=== PATIENT | female | born 1945 | race Caucasian/White ===

== ENCOUNTER → 2023-06-13 12:46 | Outpatient (CLI) | payer MEDICARE, SELFPAY ==
--- NOTE | 2023-06-13 | CA_ITS ---
APPROVED REPORT EXAM: Comprehensive 2D, Doppler, and color-flow Echocardiogram [employer] Specialist: Yasmeen Mackenzie, RT(R) Ht: 5 ft 0 in Wt: 153lbs BSA: 1.67 BP: 154/74 mmHg Indications: retinal arterial occlusion rt eye, hyperlipidemia 2D Dimensions LVOT 1.74 cm (M/F) 1.5-2.5 LVEF (Jones's) 47.80 % F: 54 - 74 LV Volume 70.30 mL F: 46 - 106 LV Volume Index 42.10 mL/m2 F: 29 - 61 LA Volume 49.90 mL LA Volume Index 29.88 mL/m2 (M/F) 16-34 M-Mode Dimensions RVDd 3.15 cm (0.9-2.6) LA Diam 3.32 cm (1.9-4.0) LVDd 4.29 cm (3.5-5.7) Ao Diam 2.02 cm (2.0-3.7) LVDs 3.57 cm (3.5-5.7) IVSd 0.91 cm (0.6-1.1) PWd 0.83 cm (0.6-1.1) EF (Teich) 35.50% FS 16.80% EDV (Teich) 82.60 mL ESV (Teich) 53.30 mL LV Diastology E Decel Time 323.00 (160-240 msec) E/A Ratio 0.77 MED E' 6.50 (< 7 cm/sec) E'/MED E' Ratio 10.82 (>14) LAT E' 7.20 (<10 cm/sec) E/LAT E' Ratio 9.76 (>14) Mitral Valve MV A Velocity 91.00 (40-130 cm/s) E/A Ratio 0.77 MV Decel. Time 323.00 (160-240 ms) Tricuspid Valve TR P. Velocity 301.00 cm/s RAP Estimate 15.00 mmHg RVSP 51.20 mmHg Left Ventricle The left ventricle is normal size. Left ventricular systolic function is low normal. There is increased LV wall thickness. There is borderline global hypokinesis present. The septum appears asynchronous. Diastolic function is indeterminate. LVEF is 50%. Right Ventricle The right ventricle is normal size. The right ventricular systolic function is normal. Atria Left atrium is mildly dilated. Right atrium is normal in size. There is no Doppler evidence of interatrial shunt. Aortic Valve The aortic valve is mildly thickened. There is no aortic valvular stenosis. Mild aortic regurgitation. Mitral Valve The mitral valve leaflets are mildly thickened. No evidence of mitral valve stenosis. Mild mitral regurgitation. Tricuspid Valve The tricuspid valve leaflets are thin and pliable. Moderate tricuspid regurgitation. RVSP is 30-35 mmHg. Pulmonic Valve The pulmonary valve is normal in structure. Mild pulmonic regurgitation. Great Vessels The aortic root is normal in size. The ascending aorta is normal in size. IVC is normal in size and collapses >50% with inspiration. Pericardium There is no pericardial effusion. Other Information Study Quality: Fair Conclusion Low normal LV systolic function (LVEF 50%). Mild left atrial enlargement. Mild AI, mild MR. Moderate TR. RVSP 30-35 mmHg. Electronically signed by : Tatiana Pantoja MD 06/15/2023 11:40:17
--- NOTE | 2023-06-13 | CA_ITS ---
FINAL REPORT TECHNIQUE: Caal scale, color and spectral doppler images of the bilateral carotid arteries were obtained. CLINICAL HISTORY: retinal arterial occlusion rt eye, hyperlipdiemia COMPARISON: None FINDINGS: Peak systolic velocity in the right internal carotid artery is 84 cm/sec. The internal carotid to common carotid artery ratio is 1.5. There is no significant carotid artery stenosis and mild plaque formation. The right vertebral artery is normal in direction. Peak systolic velocity in the left internal carotid artery is 119 cm/sec. The internal carotid to common carotid artery ratio is 1.9. There is no significant carotid artery stenosis and mild plaque formation. The left vertebral artery is normal in direction. IMPRESSION: No ultrasound evidence of hemodynamically significant carotid artery stenosis. Normal peak systolic velocities and normal internal to common carotid artery ratios bilaterally. Reviewed, Interpreted and Dictated by Gina Salinas MD Transcribed by Subha Sheth Authenticated and [facility]
--- NOTE | 2023-06-13 13:35 | ECG_ITS ---
APPROVED REPORT Exam: Resting ECG HR:56 bpm ECG Measurements Heart Rate 56 AXES NV 143 P 48 QRSd 129 QRS -35 QT 443 T 134 QTc 435 Conclusion SINUS BRADYCARDIA LEFT AXIS DEVIATION [QRS AXIS < -30] LEFT BUNDLE BRANCH BLOCK [120+ ms QRS DURATION, 80+ ms Q/S IN V1/V2, 85+ ms R IN I/aVL/V5/V6] ABNORMAL ECG UNCONFIRMED REPORT Electronically signed by : Tigre Vasquez MD 06/13/2023 17:47:51
== END ==
PROVIDERS: PCP Family Medicine; Visit Provider Family Medicine
DX: H34.11 Central retinal artery occlusion, right eye (principal); E78.5 Hyperlipidemia, unspecified; R94.31 Abnormal electrocardiogram [ECG] [EKG]
CPT/HCPCS: 93005; 93306; 93880

== ENCOUNTER 2023-10-29 06:31 | Emergency (ER) | payer MEDICARE, SELFPAY ==
[2023-10-29 06:32] VITALS: BP 158/90; PULSE 60; RESP 18; TEMP 36.5; O2SAT 99; BMI 28.3
[2023-10-29 06:36] VITALS: BMI 30.2
[2023-10-29] MEDS: OXYMETAZOLINE NASAL SPRAY 0.05% 15ML NS (06:38)
--- NOTE | 2023-10-29 06:38 | PC.NURSE ---
Provider at bedside, asked patient to blow nose, moderate clot removed. Provider sprayed afrin into both nostrils and applied nasal clamp.
--- NOTE | 2023-10-29 06:43 | HMH.EDGENADL ---
Discharge Plan Disposition Patient Disposition: Home, Self-Care Prescriptions Prescriptions: No Action loratadine [Allergy Relief (loratadine)] 10 mg tablet 10 mg PO ONCE Qty: 30 0RF olopatadine 0.2 % drops 1 drp OPHTHALMIC Q24H Qty: 2.5 0RF simvastatin 20 mg tablet 20 mg PO DAILY 90 Days Qty: 90 Patient Comments: levothyroxine 75 mcg tablet 75 mcg PO DAILY donepezil 10 mg tablet 10 mg PO DAILY cholecalciferol (vitamin D3) 1,250 mcg (50,000 unit) capsule 1,250 mcg PO WEEKLY Patient Comments: TAKE 1 CAPSULE BY MOUTH ONCE A WEEK Referrals Follow up/Referrals: Nik Pritchard MD [Primary Care Provider] - See instructions Activity Restrictions/Add. Instructions Additional Instructions/Restrictions: Today had an acute anterior epistaxis that was relieved with Afrin and compression. If you rebleed at home please readminister Afrin and apply direct compression for 30 minutes. If that does not alleviate bleeding return to the emergency department. Humidifier will help as discussed. Labs are unremarkable. Clinical Impressions Clinical Impression: Acute anterior epistaxis Instructions Patient Instructions: DI for Nosebleed Discharge ED Provider: Haylee Giordano General Adult HPI <Haylee Giordano MD - Last Filed: 10/29/23 06:56> General Chief complaint: Epistaxis Stated complaint: severe nose bleed Time Seen by Provider: 10/29/23 06:32 History of Present Illness HPI narrative: 77-year-old female presents to the ER with concerns of nosebleed. She states she woke up with a nosebleed which she has never had before. She states she let it go on for about 10 minutes before deciding to come to the ER. She does not take any blood thinners. No history of hypertension. Patient states it seems to mostly be coming from the left side. She denies any trauma, she does not report picking her nose. Patient denies any other positive review of systems. She is tasting blood down the back of her throat. Related Data Home Medications Medication Instructions Recorded Confirmed cholecalciferol (vitamin D3) 1,250 1,250 mcg PO WEEKLY 05/16/23 08/10/23 mcg (50,000 unit) capsule donepezil 10 mg tablet 10 mg PO DAILY 05/16/23 08/10/23 levothyroxine 75 mcg tablet 75 mcg PO DAILY 05/16/23 08/10/23 simvastatin 20 mg tablet 20 mg PO DAILY 90 days #90 tabs 05/16/23 08/10/23 Previous Rx's Medication Instructions Recorded loratadine 10 mg tablet (Allergy 10 mg PO ONCE #30 tabs 10/07/17 Relief (loratadine)) olopatadine 0.2 % eye drops 1 drp ophthalmic (eye) Q24H #2.5 mL 10/07/17 Allergies Allergy/AdvReac Type Severity Reaction Status Date / Time Penicillins Allergy Verified 08/10/23 13:49 PFS <Haylee Giordano MD - Last Filed: 10/29/23 06:56> PFS Disclaimer: The information contained in this section may have been updated after the patient was seen, as this information can be updated by other users. Medical History High cholesterol Hypothyroid Uterovaginal prolapse, complete Surgical History History of cataract surgery Family History Sister Cancer twin sister-breast cancer Social History Smoking Status: Never smoker alcohol intake: never current occupational status: retired Travel in the last 8 weeks: None <Haylee Giordano MD - Last Filed: 10/29/23 06:56> ROS Obtained: Yes All systems reviewed & no additional complaints except as documented Constitutional Constitutional: Denies chills, Denies fever(s), Denies headache(s) and Denies weakness Eyes Eyes: Denies change in vision ENT Ears, Nose, Mouth, and Throat: Denies dizziness, Reports epistaxis, Denies headache(s), Denies nasal congestion and Denies sore throat Cardiovascular Cardiovascular: Denies chest pain, Denies dyspnea and Denies leg edema Respiratory Respiratory: Denies cough and Denies dyspnea Gastrointestinal Gastrointestingal: Denies constipation, diarrhea, nausea or vomiting Genitourinary Female Genitourinary: Denies dysuria Musculoskeletal Musculoskeletal: Denies arthralgias, Denies myalgias, Denies numbness and Denies tingling Integumentary/Breasts Skin/Breast: Denies change in pigmentation Neurologic Neurologic: Denies dizziness, Denies headache(s), Denies numbness, Denies tingling and Denies weakness Physical Exam <Haylee Giordano MD - Last Filed: 10/29/23 06:56> General General appearance: alert and in no apparent distress Head Head exam: atraumatic and normocephalic Eye Eye exam: Present PERRL and EOMI ENT ENT exam: Present mucous membranes moist and other (Epistaxis from the left nare) Neck Neck exam: Present normal inspection and full ROM Chest Chest inspection: Present symmetric chest wall rise Respiratory Respiratory exam: Present normal lung sounds bilaterally; Absent respiratory distress, wheezes or stridor Cardiovascular Cardiovascular exam: Present regular rate and normal rhythm Extremities Exam Extremities exam: Present full ROM Neurological Exam Neurological exam: Present alert and oriented X3; Absent motor sensory deficit Psychiatric Psychiatric exam: Present normal affect and normal mood Skin Skin exam: Present warm and dry Medical Decision Making <Haylee Giordano MD - Last Filed: 10/29/23 06:56> [place] Inquiry Pt receiving controlled substance: No Vital Signs: 10/29/23 06:32 10/29/23 07:01 Temperature 97.7 F Temperature Source Oral Pulse Rate 69 Pulse Rate [Left Radial] 60 Respiratory Rate 18 Blood Pressure 155/74 H Blood Pressure [Right Arm] 158/90 H Blood Pressure Mean [Right Arm] 112 Blood Pressure Source [Right Arm] Automatic Cuff Blood Pressure Position [Right Arm] Left Lateral 02 Sat by Pulse Oximetry 99 95 Oxygen Delivery Method Room Air Room Air Lab Data Lab Results 10/29/23 06:54: WBC 8.7, RBC 4.22, Hgb 13.6, Hct 43.5, MCV 103.1 H, MCH 32.3 H, MCHC 31.3 L, RDW 13.0, Plt Count 245, MPV 9.1, Neut % (Auto) 51.2, Lymph % (Auto) 41.8, [place] % (Auto) 3.8, Eos % (Auto) 1.9, Baso % (Auto) 1.3, Neut # (Auto) 4.5, Lymph # (Auto) 3.7, [place] # (Auto) 0.3, Eos # (Auto) 0.2, Baso # (Auto) 0.1, PT 10.3, INR 0.95, APTT 25.9, Sodium 140, Potassium 3.6, Chloride 107, Carbon Dioxide 27, Anion Gap 9.6, BUN 16, Creatinine 1.10 H, Estimated Creat Clear 49, Estimated GFR 48 L, Est GFR ( Amer) 58 L, Glucose 111 H, Calcium 9.6, Total Bilirubin 1.0, AST 49 H, ALT 39, Alkaline Phosphatase 195 H, Total Protein 7.2, Albumin 4.2, Globulin 3.0, Albumin/Globulin Ratio 1.4 10/29/23 06:54 10/29/23 06:54 Orders (Tests/Meds): ED MEDICATIONS Discontinued Medications Generic Name Dose Route Start Last Admin Trade Name Freq PRN Reason Stop Dose Admin Ondansetron HCl 4 mg 10/29/23 06:43 10/29/23 06:56 Ondansetron 4mg/2ml Vial IV 10/29/23 06:44 4 mg ONCE ONE Administration Oxymetazoline HCl 1 ml 10/29/23 06:37 10/29/23 06:38 Oxymetazoline Nasal [place] 0.05% 15ml NS 10/29/23 06:38 1 ml ONCE ONE Administration ORDERS Category Date Time Status Type and Screen Stat BBK 10/29/23 06:47 Received CBC w/Auto Diff [Complete Blood Count Auto Diff] Stat Lab 10/29/23 06:54 Completed CMP [Comprehensive Metabolic Panel] Stat Lab 10/29/23 06:54 Completed PT INR [Prothrombin Time INR] Stat Lab 10/29/23 06:54 Completed PTT [Activated Partial Thrombo Time] Stat Lab 10/29/23 06:54 Completed Medical Decision Narrative: In summary, this 77year old female presents to the emergency department today with epistaxis. On initial evaluation patient is hemodynamically stable, afebrile, bleeding present from the left nare, blood is also running down the posterior oropharynx. Differential diagnosis includes but is not limited to anterior nosebleed, posterior nosebleed, coagulopathy, anemia. Based on these concerns, I ordered basic labs, type and screen, coag studies. Patient blew her nose to dislodge any old clot, I then administered Afrin spray and placed a nasal clamp. Applied at 0640. Will leave this in place for 30 minutes and reassess unless patient becomes hemodynamically unstable. On reassessment after 10 minutes, patient has less blood running down posterior oropharynx and no additional blood leaking around the clamp like when it was initially placed. Will continue to leave clamp in place. Patient handed off to Dr. Garcia for further management and disposition pending labs. <Sundeep Garcia MD - Last Filed: 10/29/23 07:44> Vital Signs: 10/29/23 06:32 10/29/23 07:01 Temperature 97.7 F Temperature Source Oral Pulse Rate 69 Pulse Rate [Left Radial] 60 Respiratory Rate 18 Blood Pressure 155/74 H Blood Pressure [Right Arm] 158/90 H Blood Pressure Mean [Right Arm] 112 Blood Pressure Source [Right Arm] Automatic Cuff Blood Pressure Position [Right Arm] Left Lateral 02 Sat by Pulse Oximetry 99 95 Oxygen Delivery Method Room Air Room Air Lab Data Lab results reviewed: Yes I reviewed the patient's lab results. Lab Results 10/29/23 06:54: WBC 8.7, RBC 4.22, Hgb 13.6, Hct 43.5, MCV 103.1 H, MCH 32.3 H, MCHC 31.3 L, RDW 13.0, Plt Count 245, MPV 9.1, Neut % (Auto) 51.2, Lymph % (Auto) 41.8, [place] % (Auto) 3.8, Eos % (Auto) 1.9, Baso % (Auto) 1.3, Neut # (Auto) 4.5, Lymph # (Auto) 3.7, [place] # (Auto) 0.3, Eos # (Auto) 0.2, Baso # (Auto) 0.1, PT 10.3, INR 0.95, APTT 25.9, Sodium 140, Potassium 3.6, Chloride 107, Carbon Dioxide 27, Anion Gap 9.6, BUN 16, Creatinine 1.10 H, Estimated Creat Clear 49, Estimated GFR 48 L, Est GFR ( Amer) 58 L, Glucose 111 H, Calcium 9.6, Total Bilirubin 1.0, AST 49 H, ALT 39, Alkaline Phosphatase 195 H, Total Protein 7.2, Albumin 4.2, Globulin 3.0, Albumin/Globulin Ratio 1.4 Orders (Tests/Meds): ED MEDICATIONS Discontinued Medications Generic Name Dose Route Start Last Admin Trade Name Freq PRN Reason Stop Dose Admin Ondansetron HCl 4 mg 10/29/23 06:43 10/29/23 06:56 Ondansetron 4mg/2ml Vial IV 10/29/23 06:44 4 mg ONCE ONE Administration Oxymetazoline HCl 1 ml 10/29/23 06:37 10/29/23 06:38 Oxymetazoline Nasal [place] 0.05% 15ml NS 10/29/23 06:38 1 ml ONCE ONE Administration ORDERS Category Date Time Status Type and Screen Stat BBK 10/29/23 06:47 Received CBC w/Auto Diff [Complete Blood Count Auto Diff] Stat Lab 10/29/23 06:54 Completed CMP [Comprehensive Metabolic Panel] Stat Lab 10/29/23 06:54 Completed PT INR [Prothrombin Time INR] Stat Lab 10/29/23 06:54 Completed PTT [Activated Partial Thrombo Time] Stat Lab 10/29/23 06:54 Completed Medical Decision Narrative: In summary, this 77year old female presents to the emergency department today with epistaxis. On initial evaluation patient is hemodynamically stable, afebrile, bleeding present from the left nare, blood is also running down the posterior oropharynx. Differential diagnosis includes but is not limited to anterior nosebleed, posterior nosebleed, coagulopathy, anemia. Based on these concerns, I ordered basic labs, type and screen, coag studies. Patient blew her nose to dislodge any old clot, I then administered Afrin spray and placed a nasal clamp. Applied at 0640. Will leave this in place for 30 minutes and reassess unless patient becomes hemodynamically unstable. On reassessment after 10 minutes, patient has less blood running down posterior oropharynx and no additional blood leaking around the clamp like when it was initially placed. Will continue to leave clamp in place. Patient handed off to Dr. Garcia for further management and disposition pending labs. Reassessment this is Dr. Garcia at 7:44 AM. Epistaxis completely resolved no ongoing anterior posterior bleeding. She has been given her nasal compression device and oxymetazoline and advised to readminister this if she rebleeds or to return the emergency part with any worsening symptoms. Labs unremarkable she was discharged in a stable condition. Critical Care <Haylee Giordano MD - Last Filed: 10/29/23 06:56> Critical Care Time Critical Care Time: No
[2023-10-29] MEDS: ONDANSETRON 4MG/2ML VIAL 4 MG IV (06:56)
[2023-10-29 07:01] VITALS: BP 155/74; PULSE 69; O2SAT 95
[2023-10-29 07:17] LABS: Basophils # 0.1 K/mm3 (0-0.2); Basophils % 1.3 % (0.1-2.0); Eosinophils # 0.2 K/mm3 (0.0-0.4); Eosinophils % 1.9 % (0.1-12.0); Hematocrit 43.5 % (37.0-47.0); Hemoglobin 13.6 g/dL (12.2-16.2); Lymphocytes # 3.7 K/mm3 (0.7-4.5); Lymphocytes % 41.8 % (10-50); Mean Corpuscular HGB Conc 31.3 g/dL (31.8-35.4); Mean Corpuscular Hemoglobin 32.3 pg (27.0-31.2); Mean Corpuscular Volume 103.1 fl (81-99); Mean Platelet Volume 9.1 fl (7.4-10.4); Monocytes # 0.3 K/mm3 (0.1-1.0); Monocytes % 3.8 % (1.7-9.3); Neutrophils # 4.5 K/mm3 (1.8-7.8); Neutrophils % 51.2 % (37.0-80.0); Platelet Count 245 K/mm3 (142-424); Red Blood Count 4.22 M/mm3 (4.20-5.40); White Blood Count 8.7 K/mm3 (4.8-10.8)
[2023-10-29 07:21] LABS: Alanine Aminotransferase 39 U/L (12-78); Albumin Level 4.2 g/dl (3.5-5.0); Albumin/Globulin Ratio 1.4 (1.1-1.8); Alkaline Phosphatase 195 U/L (38-126); Anion Gap 9.6 mEq/L (5-15); Aspartate Amino Transferase 49 U/L (14-36); Blood Urea Nitrogen 16 mg/dl (7-17); Calcium 9.6 mg/dl (8.4-10.2); Carbon Dioxide 27 mmol/L (22.0-30.0); Chloride 107 mmol/L (98-107); Creatinine Clearance Estimated 49 mL/min (50-200); Estimated Glomerular Filt Rate 48 ml/min (>60); GFR (African American) 58 ML/MIN (>60); Glucose 111 mg/dl (74-100); Potassium 3.6 mmoL/L (3.5-5.1); Sodium 140 mmol/L (136-145); Total Protein,Serum 7.2 g/dl (6.3-8.2)
[2023-10-29 07:23] LABS: Activated Partial Thrombo Time 25.9 seconds (22.8-30.6); INR 0.95 (0.9-1.1); Prothrombin Time 10.3 seconds (10.1-12.5)
[2023-10-29 07:42] VITALS: BP 106/64; PULSE 75; RESP 17; TEMP 36.6; O2SAT 98
== END 2023-10-29 07:49 | disposition home or self-care (01) ==
PROVIDERS: Emergency Provider Emergency Medicine; PCP Family Medicine
DX: R04.0 Epistaxis (principal); E03.9 Hypothyroidism, unspecified
CPT/HCPCS: 80053; 85025; 85610; 85730; 86850; 96374; 99284; J2405

== ENCOUNTER 2025-05-01 08:52 | Outpatient (CLI) | payer MEDICARE, SELFPAY ==
--- OUTSIDE RECORDS SUMMARY | 2024-04-06 06:00 | XMS_ITS ---
Author Organization [facility] Address [address] [place] [id number] Care Team Providers Care Rubber Off Name Role Phone Nik Pritchard Primary Care Provider Allergies Allergen (clinical drug ingredient) Drug/Non Drug Allergy documented on EMR Reaction Allergy Type Onset Date Status Penicillin rash Drug Allergy Active Results Component Value Reference Range Notes CBC Venipuncture (in house) Reviewed date:04/11/2024 09:58:02 AM Interpretation: Performing Lab: Notes/Report: wbc 7.8 3.5 - 10 lymph 19.1% 15 - 50 mid 5.3% 2 - 15 gran 75.6% 35 - 80 rbc 4.08 3.5 - 5.5 hgb 12.7 11.5 - 16.5 hct 38.6 35 - 55 mcv 94.5 75 - 100 mch 31.1 25 - 35 mchc 32.9 31 - 38 platlet 224 100 - 400 P-Comprehensive Metabolic Pa iesha (CMP) Reviewed date:04/11/2024 09:58:01 AM Interpretation:K+ 5.6, creat 1.15, gfr 48, alk phos 205, ast 41 Performing Lab: Notes/Report: Test performed by [facility] [address] [place] [address] , [address], [place] [address] William Sanchez MD, City Driver CLIA: [id number] Sodium 141 135-145 mmol/L Potassium 5.6 3.5-5.3 mmol/L Chloride 106 97-108 mmol/L CO2 27 22-32 mmol/L Glucose 84 65-99 mg/dL BUN 15 8-23 mg/dL Creatinine 1.15 0.50-1.00 mg/dL Calcium 10.0 8.6-10.4 mg/dL eGFR by Creatinine 48 >59 mL/min/1.73m2 Protein 6.7 6.0-8.3 g/dL Albumin 4.1 3.5-5.3 g/dL Alkaline Phosphatase 205 35-121 IU/L ALT (SGPT) 31 <5-47 IU/L AST (SGOT) 41 <5-40 IU/L Bilirubin, Total 0.6 <0.2-1.2 mg/dL A/G Ratio 1.6 1.1-2.5 P-T4 Free (thyroxine) Reviewed date:04/11/2024 09:58:01 AM Interpretation:Normal Performing Lab: Notes/Report: Test performed by [facility] [address] [place] [address] [address], [place] [address] William Sanchez MD, City Driver CLIA: [id number] Thyroxine Free (free T4) 1.34 0.86-1.76 ng/dL P-Lipid Panel Reviewed date:04/11/2024 09:58:01 AM Interpretation:chol 206 Performing Lab: Notes/Report: Test performed by [facility] [address] [place] [address] [place] [address] William Sanchez MD, City Driver CLIA: [id number] Cholesterol 206 <200 mg/dL Triglycerides 86 <150 mg/dL HDL Cholesterol 83 >39 mg/dL Cholesterol / HDL Ratio 2.48 0.00-4.44 Ratio Non-HDL Cholesterol 123 <130 mg/dL LDL Cholesterol (Calculation) 106 <130 mg/dL LDL Cholesterol Levels* Less than 100 mg/dL Optimal 100 to 129 mg/dL Near Optimal/ Above Optimal 130 to 159 mg/dL Borderline High 160 to 189 mg/dL High 190 mg/dL and above Very High * Categories as recommended by the 2004 ATPIII guidelines LDL/HDL Ratio 1.3 <3.3 Ratio LDL Cholesterol Patient History Test Date: 04/06/2024 LDL Results: 106 Units: mg/dL % Change: - P-Phosphorus Reviewed date:04/11/2024 09:58:01 AM Interpretation:Normal Performing Lab: Notes/Report: Test performed by [facility] , [facility], [place] [address] William Sanchez MD, City Driver CLIA: [id number] Phosphorus 3.7 2.5-4.5 mg/dL P-TSH Reviewed date:04/11/2024 09:58:02 AM Interpretation:Normal Performing Lab: Notes/Report: Test performed by [facility] , [place] [address] iWlliam Sanchez MD, City Driver CLIA: [id number] TSH 2.04 0.43-5.25 mU/L P-Microalbumin/Creatinine, R andom Urine Sample Reviewed date:04/11/2024 09:58:02 AM Interpretation:Normal Performing Lab: Notes/Report: Test performed by [facility] [address] [facility], [place] [address] William Sanchez MD, City Driver CLIA: [id number] Albumin/Creatinine Ratio, Urine 11 0-30 ug/m g Microalbumin, Urine, Random 0.8 Creatinine, Urine 74.0 P-Vitamin D 25-Hydroxy Reviewed date:04/11/2024 09:58:02 AM Interpretation:Normal Performing Lab: Notes/Report: Test performed by [facility] , [address], [place] [address] William Sanchez MD, City Driver CLIA: [id number] Vitamin D 25-Hydroxy 100.0 30.0-100.0 ng/mL Interpretation of Vitamin D 25 OH: < 20 ng/mL - Deficiency 20 - 29 ng/mL - Insufficiency 30 - 100 ng/mL - Sufficiency > 100 ng/mL - Super-therapeutic- toxicity may occur above this level. Clinical correlation required. REASON FOR VISIT REFILLS Medications Medication SIG (Take, Route, Frequency, Duration) Notes Start Date End Date Status Aspirin 81 MG 1 tablet Orally Once a day; Duration: 30 day(s) Active Donepezil HCl 10 MG TAKE 1 TABLET BY ONCE DAILY IN THE MORNING; Duration: 90 days Active Simvastatin 20 MG 1 tab(s) orally once a day (at bedtime); Duration: 90 days Active Losartan Potassium 25 MG 1 tablet Orally Once a day; Duration: 90 days 07/11/2023 Active Levothyroxine Sodium 75 MCG 1 tab(s) ora lly once a day; Duration: 30 days Active Vitamin D3 1.25 MG (92191 UT) 1 cap(s) orally once a week; Duration: 90 days Active Immunizations Vaccine Route Administration Date Status Comme nts Fluzone High Dose (65yr and older) IM Intramuscular 04/06/2024 Administered Vital Signs Blood pressure systolic 130 mm Hg 04/06/20 24 Blood pressure diastolic 80 mm Hg 024 Heart Rate 70 /min 04/06/2024 Height 61.25 in 04/06/2024 Weight 149.2 lbs 04/06/2024 BMI 27.96 kg/m2 04/06/2024 Encounters Encounter Location Date Provider Diagnosis [facility] [address] [place], [place] [id number] 04/06/2024 Nik [place] Pure hypercholestero lemia E78.00 ; Acquired hypothyroidism E03.9 ; Stage 3a chronic kidney disease N18.31 ; Vitamin D deficiency E55.9 and MCI (mild cognitive impairment) G31.84 Assessments Encounter Date Diagnosis (ICD Code) Assessment Notes Treatment Notes Treatment Clinical Notes Section Notes 04/06/2024 Pure hypercholesterolemia (ICD-10 - E78.00) 04/06/2024 Acquired hypothyroid ism (ICD-10 - E03.9) 04/06/2024 Stage 3a chronic kid angle disease (ICD-10 - N18.31) 04/06/2024 Vitamin D deficiency (ICD-10 - E55.9) 04/06/2024 MCI (mild cognitive impairment) (ICD-10 - G31.84) Plan Of Treatment Medication Medication Name Sig Start Date Stop Date Notes Simvastatin 20 MG 1 tab(s) orally once a day (at bedtime); Duration: 90 days Next Appt Details Follow Up: 6 Months, Reason: Provider Name:Nik Gaytan , 10/07/2025 10:00:00 AM, [address], [address], [place], [id number], Progress Notes * GOLDY MCCARTHYDOB:1945 (79 yo F)Acc No.[id number]:04/06/2024 Progress Notes Patient: Gilles ALEXIS GOLDY Provider: Travis Pritchard M.D. :1945 A ge:78 Y S ex:Female Date:04/06/2024 Address:[address] [place] [address] [id number] Subjective: * Chief Complaints: * 1 . REFILLS. * HPI: E ndocrinology: 78 year old female presents with c/o Hypothyroidism P t here to f/u, states she is doing well and does not have any concerns. C ardiology: c/o Hyperlipidemia P t is not fasting today. * ROS: D ERMATOLOGY: no R sina. n o H heath. G ASTROENTEROLOGY: no N ausea. n o V omiting. U ROLOGY: no D ifficulty urinating. n o B lood in urine. * Medical History: H yperlipidemia, Hypothyroidism, Vitamin D Deficiency, Mild Cognitive Impairment, Dx 2019, followed at , RIght Retinal artery occlusion Oct. 2022. * Surgical History: C ataract 2012, Lip Lesion Removal 2015. * Hospitalization/Major Diagno stic Procedure: D enies Past Hospitalization. * Family History: F ather: 78 yrs, diagnosed with Stroke. M other: 82 yrs. S iblings: alive, diagnosed with Cancer. Rosy leahy: alive. 1 brother(s) , 2 sister(s) - healthy. 2 daughter(s) - healthy. . Sister- breast 50 years ago. * Social History: C URRENT TOBACCO USE S moking Status: P atient does NOT smoke, F ormer Smoker:?No, S econd hand smoke exposure: Y es as a young child. * Medications: T aking Aspirin 81 MG Tablet Delayed Release 1 tablet Orally Once a day , Taking Vitamin D3 1.25 MG (53476 UT) Capsule 1 cap(s) orally once a week , Taking Donepezil HCl 10 MG Tablet TAKE 1 TABLET BY MOUTH ONCE DAILY IN THE MORNING , Taking Losartan Potassium 25 MG Tablet 1 tablet Orally Once a day , Taking Simvastatin 20 MG Tablet 1 tab(s) orally once a day (at bedtime) , Taking Levothyroxine Sodium 75 MCG Tablet 1 tab(s) orally once a day , Medication List reviewed and reconciled with the patient * Allergies: P enicillin: rash. Objective: * Vitals: W t:149.2, Temp:98.0, BP:130/80, HR:70, Nurse:juan manuel, Ht: 61.25, BMI:27.96. * Examination: E ndocrinology: General Appearance: N AD. H EENT: u nremarkable.?Thyroid exam: n o enlargement. H eart: R SR. L ungs: c lear to auscultation.?Skin: n ormal, no rash. Assessment: * Assessment: 1. P ure hypercholesterolemia - E78.00 (Primary) 2 . A cquired hypothyroidism - E03.9 3 . S tage 3a chronic kidney disease - N18.31 4 .?Vitamin D deficiency - E55.9 5 . M CI (mild cognitive impairment) - G31.84? Plan: * Treatment: Value Reference Range A /G Ratio 1.6 1.1-2.5 - * A lbumin 4.1 3.5-5.3 - g/dL * A lkaline Phosphatase 205 H 35-121 - IU/L * A LT (SGPT) 31 <5-47 - IU/L * A ST (SGOT) 41 H <5-40 - IU/L * B ilirubin, Total 0.6 <0.2-1.2 - mg/dL * B UN 15 8-23 - mg/dL * C alcium 10.0 8.6-10.4 - mg/dL * C hloride 106 97-108 - mmol/L * C O2 27 22-32 - mmol/L * C reatinine 1.15 H 0.50-1.00 - mg/dL * G lucose 84 65-99 - mg/dL * P otassium 5.6 H 3.5-5.3 - mmol/L * S odium 141 135-145 - mmol/L * P rotein 6.7 6.0-8.3 - g/dL * e GFR by Creatinine 48 L >59 - mL/min/1.73m2 * Marta Summers 04/11/2024 9:56: 52 AM >See phone encounter ?LAB: P-Lipid Panel (Collection Date & Time - 04/06/2024 09:36 AM)?chol 206 * Value Reference Range C holesterol / HDL Ratio 2.48 0.00-4.44 - Ratio * C holesterol 206 H <200 - mg/dL * H DL Cholesterol 83 >39 - mg/dL * L DL Cholesterol (Calculation) 106 <130 - mg/d L * L DL/HDL Ratio 1.3 <3.3 - Ratio * N on-HDL Cholesterol 123 <130 - mg/dL * T riglycerides 86 <150 - mg/dL * Marta Summers 04/11/2024 9:56: 52 AM >See phone encounter 2.?Acquired hypothyroidism?LAB: P-T4 Free (thyroxine) (Collection Date & Time - 04/06/2024 09:36 AM)? Normal* Value Reference Range T hyroxine Free (free T4) 1.34 0.86-1.76 - ng/d L * Marta Summers 04/11/2024 9:56: 52 AM >See phone encounter ?LAB: P-TSH (Collection Date & Time - 04/06/2024 09:36 AM)?Normal* Value Reference Range T SH 2.04 0.43-5.25 - mU/L * Marta Summers 04/11/2024 9:56: 52 AM >See phone encounter 3.?Stage 3a chronic kidney disease?LAB: P-Comprehensive Metabolic Panel (CMP) (Collection Date & Time - 04/06/2024 09:36 AM)?K+ 5.6, creat 1.15, gfr 48, alk phos 205, ast 41* Value Reference Range A /G Ratio 1.6 1.1-2.5 - * A lbumin 4.1 3.5-5.3 - g/dL * A lkaline Phosphatase 205 H 35-121 - IU/L * A LT (SGPT) 31 <5-47 - IU/L * A ST (SGOT) 41 H <5-40 - IU/L * B ilirubin, Total 0.6 <0.2-1.2 - mg/dL * B UN 15 8-23 - mg/dL * C alcium 10.0 8.6-10.4 - mg/dL * C hloride 106 97-108 - mmol/L * C O2 27 22-32 - mmol/L * C reatinine 1.15 H 0.50-1.00 - mg/dL * G lucose 84 65-99 - mg/dL * P otassium 5.6 H 3.5-5.3 - mmol/L * S odium 141 135-145 - mmol/L * P rotein 6.7 6.0-8.3 - g/dL * e GFR by Creatinine 48 L >59 - mL/min/1.73m2 * Marta Summers 04/11/2024 9:56: 52 AM >See phone encounter ?LAB: P-Phosphorus (Collection Date & Time - 04/06/2024 09:36 AM)?Normal* Value Reference Range P hosphorus 3.7 2.5-4.5 - mg/dL * Marta Summers 04/11/2024 9:56: 52 AM >See phone encounter ?LAB: P-Microalbumin/Creatinine, Random Urine Sample (Collection Date & Time - 04/06/2024 09:36 AM)?Normal* Value Reference Range A lbumin/Creatinine Ratio, Urine 11 0-30 - ug /mg * C reatinine, Urine 74.0 - mg/dL * M icroalbumin, Urine, Random 0.8 - mg/dL * Marta Summers 04/11/2024 9:56: 52 AM >See phone encounter ?LAB: CBC Venipuncture (in house) (Collection Date & Time - 04/06/2024)* Value Reference Range w bc 7.8 3.5 - 10 * l ymph 19.1% 15 - 50 * m id 5.3% 2 - 15 * g ran 75.6% 35 - 80 * r bc 4.08 3.5 - 5.5 * h gb 12.7 11.5 - 16.5 * h ct 38.6 35 - 55 * m cv 94.5 75 - 100 * m ch 31.1 25 - 35 * m chc 32.9 31 - 38 * p latlet 224 100 - 400 * Zully Del Real 04/06/2024 12:09:1 3 PM > Marta Summers 04/11/2024 9:56:52 AM >See phone encounter 4.?Vitamin D deficiency?LAB: P-Vitamin D 25-Hydroxy (Collection Date & Time - 04/06/2024 09:36 AM)? Normal* Value Reference Range V itamin D 25-Hydroxy 100.0 30.0-100.0 - ng/mL * Marta Summers 04/11/2024 9:56: 52 AM >See phone encounter * Immunizations: Fluzone High Dose (65yr and older) : 0.7 mL (Route: Intramuscular) given by Zully Del Real on Right Deltoid * Procedure Codes: G 2211 Complex [place], [address] CBC WITH AUTO DIFF * Follow Up: 6 Months * Images: Billing Information: * Visit Code: 58899 Office Visit, Est Pt., Level 4. * Procedure Codes: G2211 Complex e/[place]. [address] CBC WITH AUTO DIFF. * Electronic signature of Dariana Pritchard MD on 05/01/2025 at 09:05 AM EDT Sign off status: Pending * Provider: Travis Pritchard M.D. Date: 0 04/06/2024 Generated for Dante alba/Pascual/eTransmitting on: 0 05/01/2025 09:05 AM EDT History and Physical Notes * HPI (History of Present Illness) Category Sub-Category Detail Notes Category Not es Endocrinology Hypothyroidism Pt here to f/u, states she is doing well and does not have any concerns Cardiology Hyperlipidemia Pt is not fasting today Examination Category Sub-Category Detail Notes Category Not es Endocrinology HEENT: unremarkable Heart: RSR Lungs: clear to auscultatio n General Appearance: NAD Skin: normal, no rash Thyroid exam: no enlargement
--- OUTSIDE RECORDS SUMMARY | 2024-04-19 04:45 | XMS_ITS ---
Author Organization [facility] Address [address] [facility] [address] [place] [id number] Care Team Providers Care Flash Welder Name Role Phone Nik Pritchard Primary Care Provider [phone] Results Component Value Reference Range Notes P-Basic Metabolic Panel (BMP ) Reviewed date:04/20/2024 03:52:54 PM Interpretation:Cr 1.22, gfr 45 Performing Lab: Notes/Report: Test performed by [facility] [address] [place] [address] , [address], [place] [address] William Sanchez MD, Clerk Of Works CLIA: [id number] Sodium 140 135-145 mmol/L Potassium 4.2 3.5-5.3 mmol/L Chloride 103 97-108 mmol/L CO2 27 22-32 mmol/L Glucose 89 65-99 mg/dL BUN 13 8-23 mg/dL Creatinine 1.22 0.50-1.00 mg/dL Calcium 9.6 8.6-10.4 mg/dL eGFR by Creatinine 45 >59 mL/min/1.73m2 REASON FOR VISIT lab draw only Medications Medication SIG (Take, Route, Frequency, Duration) Notes Start Date End Date Status Simvastatin 20 MG 1 tab(s) orally once a day (at bedtime); Duration: 90 days Active Levothyroxine Sodium 75 MCG 1 tab(s) ora lly once a day; Duration: 30 days Active Vitamin D3 1.25 MG (33141 UT) 1 cap(s) orally once a week; Duration: 90 days Active Losartan Potassium 25 MG 1 tablet Orally Once a day; Duration: 90 days 07/11/2023 Active Donepezil HCl 10 MG TAKE 1 TABLET BY VELIA ONCE DAILY IN THE MORNING; Duration: 90 days Active Aspirin 81 MG 1 tablet Orally Once a day; Duration: 30 day(s) Active Encounters Encounter Location Date Provider Diagnosis [facility] [address] [facility] [address] [facility] [address] [place] [id number] 04/19/2024 Nik Pritchard Hyperkalemia E87.5 Assessments Encounter Date Diagnosis (ICD Code) Assessment Notes Treatment Notes Treatment Clinical Notes Section Notes 04/19/2024 Hyperkalemia (ICD-10 - E87.5) Plan Of Treatment Next Appt Details Provider Name:Nik Gaytan ry, 10/07/2025 10:00:00 AM, [address] [facility] [address] [facility], [address], [place], [id number], Progress Notes * GOLDY MCCARTHYDOB:1945 (79 yo F)Acc No.[id number]:04/19/2024 Patient: Gilles GOLDY ALEXIS Provider: Travis Pritchard M.D. :1945 A ge:78 Y S ex:Female Date:04/19/2024 Address:[address] [place] [address] [id number] Subjective: * Chief Complaints: * 1 . Lab draw only. * Medical History: * Medications: T aking Aspirin 81 MG Tablet Delayed Release 1 tablet Orally Once a day , Taking Vitamin D3 1.25 MG (64104 UT) Capsule 1 cap(s) orally once a week , Taking Donepezil HCl 10 MG Tablet TAKE 1 TABLET BY MOUTH ONCE DAILY IN THE MORNING , Taking Losartan Potassium 25 MG Tablet 1 tablet Orally Once a day , Taking Levothyroxine Sodium 75 MCG Tablet 1 tab(s) orally once a day , Taking Simvastatin 20 MG Tablet 1 tab(s) orally once a day (at bedtime) , Medication List reviewed and reconciled with the patient Objective: * Vitals: Assessment: * Assessment: 1. H yperkalemia - E87.5 Plan: * Treatment: Value Reference Range B UN 13 8-23 - mg/dL * C alcium 9.6 8.6-10.4 - mg/dL * C hloride 103 97-108 - mmol/L * C O2 27 22-32 - mmol/L * C reatinine 1.22 H 0.50-1.00 - mg/dL * G lucose 89 65-99 - mg/dL * P otassium 4.2 3.5-5.3 - mmol/L * S odium 140 135-145 - mmol/L * e GFR by Creatinine 45 L >59 - mL/min/1.73m2 * Rachael Cortés 04/20/2024 3:52: 46 PM >See phone encounter * Images: Billing Information: * Visit Code: * Procedure Codes: * Electronic signature of Dariana Pritchard MD on 05/01/2025 at 09:04 AM EDT Sign off status: Pending * Provider: Travis Pritchard M.D. Date: 0 04/19/2024 Generated for Dante alba/Pascual/eTransmitting on: 0 05/01/2025 09:04 AM EDT
--- OUTSIDE RECORDS SUMMARY | 2024-10-05 05:30 | XMS_ITS ---
Author Organization [facility] Address [address] [place] [id number] Care Team Providers Care Enamel Drier Name Role Phone Nik Pritchard Primary Care Provider [phone] Allergies Allergen (clinical drug ingredient) Drug/Non Drug Allergy documented on EMR Reaction Allergy Type Onset Date Status Penicillin rash Drug Allergy Active Results Component Value Reference Range Notes P-Comprehensive Metabolic Pa iesha (CMP) Reviewed date:10/08/2024 11:41:29 AM Interpretation:Cr 1.18, gfr 46, alk phos 212 Performing Lab: Notes/Report: Test performed by [facility] [address] [place] [address] , [address], [place] [address] William Sanchez MD, Viscosity Tester CLIA: [id number] Sodium 142 135-145 mmol/L Potassium 4.6 3.5-5.3 mmol/L Chloride 105 97-108 mmol/L CO2 26 22-32 mmol/L Glucose 81 65-99 mg/dL BUN 16 8-23 mg/dL Creatinine 1.18 0.50-1.00 mg/dL Calcium 9.9 8.6-10.4 mg/dL eGFR by Creatinine 46 >59 mL/min/1.73m2 Protein 6.7 6.0-8.3 g/dL Albumin 4.3 3.5-5.3 g/dL Alkaline Phosphatase 212 35-121 IU/L ALT (SGPT) 30 <5-47 IU/L AST (SGOT) 32 <5-40 IU/L Bilirubin, Total 0.6 <0.2-1.2 mg/dL A/G Ratio 1.8 1.1-2.5 P-Lipid Panel Reviewed date:10/08/2024 11:41:29 AM Interpretation: Normal Performing Lab: Notes/Report: Test performed by [facility] [address] , [address], [place] [address] William Sanchez MD, Viscosity Tester CLIA: [id number] Cholesterol 192 <200 mg/dL Triglycerides 96 <150 mg/dL HDL Cholesterol 86 >39 mg/dL Cholesterol / HDL Ratio 2.23 0.00-4.44 Ratio Non-HDL Cholesterol 106 <130 mg/dL LDL Cholesterol (Calculation) 87 <130 mg/dL LDL Cholesterol Levels* Less than 100 mg/dL Optimal 100 to 129 mg/dL Near Optimal/ Above Optimal 130 to 159 mg/dL Borderline High 160 to 189 mg/dL High 190 mg/dL and above Very High * Categories as recommended by the 2004 ATPIII guidelines LDL/HDL Ratio 1.0 <3.3 Ratio LDL Cholesterol Patient History Test Date: 04/06/2024 LDL Results: 106 Units: mg/dL % Change: - Test Date: 10/05/2024 LDL Results: 87 Units: mg/dL % Change: -17% P-Phosphorus Reviewed date:10/08/2024 11:41:29 AM Interpretation: Normal Performing Lab: Notes/Report: Test performed by [facility] [address] [place] [address] , [address], [place] [address] William Sanchez MD, Viscosity Tester CLIA: [id number] Phosphorus 3.4 2.5-4.5 mg/dL REASON FOR VISIT 6 months Medications Medication SIG (Take, Route, Frequency, Duration) Notes Start Date End Date Status Aspirin 81 MG 1 tablet Orally Once a day; Duration: 30 day(s) Active Simvastatin 20 MG 1 tab(s) orally once a day (at bedtime); Duration: 90 days Active Levothyroxine Sodium 75 MCG 1 tab(s) ora lly once a day; Duration: 90 days Active Donepezil HCl 10 MG TAKE 1 TABLET BY VELIA ONCE DAILY IN THE MORNING; Duration: 90 days Active Losartan Potassium 25 MG 1 tablet Orally Once a day; Duration: 90 days 07/11/2023 Active Farxiga 10 MG 1 tablet Orally Once a day; Duration: 90 days 10/05/2024 Active Vitamin D3 1.25 MG (40627 UT) 1 cap(s) orally once a week; Duration: 90 days Active Vital Signs Blood pressure systolic 130 mm Hg 10/05/19 25 Blood pressure diastolic 74 mm Hg 025 Heart Rate 57 /min 10/05/2024 Height 61.25 in 10/05/2024 Weight 151 lbs 10/05/2024 BMI 28.30 kg/m2 10/05/2024 Encounters Encounter Location Date Provider Diagnosis [facility] [address] [place] [id number] 10/05/2024 Nik Alderson Pure hypercholestero lemia E78.00 and Stage 3a chronic kidney disease N18.31 Assessments Encounter Date Diagnosis (ICD Code) Assessment Notes Treatment Notes Treatment Clinical Notes Section Notes 10/05/2024 Pure hypercholesterolemia (ICD-10 - E78.00) 10/05/2024 Stage 3a chronic kid angle disease (ICD-10 - N18.31) Plan Of Treatment Medication Medication Name Sig Start Date Stop Date Notes Simvastatin 20 MG 1 tab(s) orally once a day (at bedtime); Duration: 90 days Farxiga 10 MG 1 tablet Orally Once a day; Duration: 90 days 10/05/2024 Next Appt Details Follow Up: 6 Months, Reason: Provider Name:Nik Gaytan ry, 10/07/2025 10:00:00 AM, [address], [address], [place], [place], [id number], Progress Notes * GOLDY MCCARTHYDOB:1945 (79 yo F)Acc No.[id number]:10/05/2024 Progress Notes Patient: GOLDY DE LA O Provider: Travis Pritchard M.D. :1945 A ge:78 Y S ex:Female Date:10/05/2024 Address:[address] [place] [address] , [place], [id number] Subjective: * Chief Complaints: * 1 . 6 months. * HPI: E ndocrinology: 78 year old female presents with c/o Hypothyroidism P t here for 6 mo f/u, pt states she is doing well and does [...] Vitamin D Deficiency, Mild Cognitive Impairment, Dx 2018, followed at , RIght Retinal artery occlusion Oct2022. * Surgical History: C ataract 2012, Lip Lesion Removal 2015. * Hospitalization/Major Diagno stic Procedure: D enies Past Hospitalization. * Family History: F ather: 78 yrs, diagnosed with Stroke. M other: 82 yrs. S iblings: alive, diagnosed with Cancer. C hildren: alive. 1 brother(s) , 2 sister(s) - [...] tab(s) orally once a day , Taking Donepezil HCl 10 MG Tablet TAKE 1 TABLET BY MOUTH ONCE DAILY IN THE MORNING , Taking Losartan Potassium 25 MG Tablet 1 tablet Orally Once a day , Taking Vitamin D3 1.25 MG (24057 UT) Capsule 1 cap(s) orally once a week , Medication List reviewed and reconciled with the patient * Allergies: P enicillin: rash. Objective: * Vitals: W t:151, Temp:98.0, BP:130/74, HR:57, Nurse:juan manuel, Ht: 61.25, BMI:28.30. * Examination: E ndocrinology: General Appearance: N AD. H EENT: u nremarkable.?Heart: R SR. L ungs: c lear to auscultation. Assessment: * Assessment: 1. P ure hypercholesterolemia - E78.00 (Primary) 2 . S tage 3a chronic kidney disease - N18.31 Plan: * Treatment: Value Reference Range A /G Ratio 1.8 1.1-2.5 - * A lbumin 4.3 3.5-5.3 - g/dL * A lkaline Phosphatase 212 H 35-121 - IU/L * A LT (SGPT) 30 <5-47 - IU/L * A ST (SGOT) 32 <5-40 - IU/L * B ilirubin, Total 0.6 <0.2-1.2 - mg/dL * B UN 16 8-23 - mg/dL * C alcium 9.9 8.6-10.4 - mg/dL * C hloride 105 97-108 - mmol/L * C O2 26 22-32 - mmol/L * C reatinine 1.18 H 0.50-1.00 - mg/dL * G lucose 81 65-99 - mg/dL * P otassium 4.6 3.5-5.3 - mmol/L * S odium 142 135-145 - mmol/L * P rotein 6.7 6.0-8.3 - g/dL * e GFR by Creatinine 46 L >59 - mL/min/1.73m2 * MooGuruRachael 10/08/2024 11:41: 24 AM >See phone encounter ?LAB: P-Lipid Panel (Collection Date & Time - 10/05/2024 08:40 AM)?Normal* Value Reference Range C holesterol / HDL Ratio 2.23 0.00-4.44 - Ratio * C holesterol 192 <200 - mg/dL * H DL Cholesterol 86 >39 - mg/dL * L DL Cholesterol (Calculation) 87 <130 - mg/d L * L DL/HDL Ratio 1.0 <3.3 - Ratio * N on-HDL Cholesterol 106 <130 - mg/dL * T riglycerides 96 <150 - mg/dL * Rachael Cortés 10/08/2024 11:41: 24 AM >See phone encounter 2.?Stage 3a chronic kidney disease? Start Farxiga Tablet, 10 MG, 1 tablet, Orally, Once a day, 90 days, 90 Tablet, Refills 1.?LAB: P-Comprehensive Metabolic Panel (CMP) (Collection Date & Time - 10/05/2024 08:40 AM)?Cr 1.18, gfr 46, alk phos 212* Value Reference Range A /G Ratio 1.8 1.1-2.5 - * A lbumin 4.3 3.5-5.3 - g/dL * A lkaline Phosphatase 212 H 35-121 - IU/L * A LT (SGPT) 30 <5-47 - IU/L * A ST (SGOT) 32 <5-40 - IU/L * B ilirubin, Total 0.6 <0.2-1.2 - mg/dL * B UN 16 8-23 - mg/dL * C alcium 9.9 8.6-10.4 - mg/dL * C hloride 105 97-108 - mmol/L * C O2 26 22-32 - mmol/L * C reatinine 1.18 H 0.50-1.00 - mg/dL * G lucose 81 65-99 - mg/dL * P otassium 4.6 3.5-5.3 - mmol/L * S odium 142 135-145 - mmol/L * P rotein 6.7 6.0-8.3 - g/dL * e GFR by Creatinine 46 L >59 - mL/min/1.73m2 * Rachael Cortés 10/08/2024 11:41: 24 AM >See phone encounter ?LAB: P-Phosphorus (Collection Date & Time - 10/05/2024 08:40 AM)?Normal* Value Reference Range P hosphorus 3.4 2.5-4.5 - mg/dL * Rachael Cortés 10/08/2024 11:41: 24 AM >See phone encounter * Procedure Codes: G 2211 Complex e/m visit add on, 3075F SYST BP GE 130 - 139MM HG, 3078F DIAST BP < 80 MM HG * Follow Up: 6 Months * Images: Billing Information: * Visit Code: 15474 Office Visit, Est Pt., Level 4. * Procedure Codes: G2211 Complex e/m visit add on. 3075F SYST BP GE 130 - 139MM HG. 3078F DIAST BP < 80 MM HG. * Electronic signature of Dariana Pritchard MD on 05/01/2025 at 09:04 AM EDT Sign off status: Pending * Provider: Travis Pritchard M.D. Date: 0 10/05/2024 Generated for Dante alba/Pascual/eTransmitting on: 0 05/01/2025 09:04 AM EDT History and Physical Notes * HPI (History of Present Illness) Category Sub-Category Detail Notes Category Not es Endocrinology Hypothyroidism Pt here for 6 mo f/u, pt states she is doing well and does not have any concerns Cardiology Hyperlipidemia Pt is not fasting today Examination Category Sub-Category Detail Notes Category Not es Endocrinology HEENT: unremarkable Heart: RSR Lungs: clear to auscultatio n General Appearance: NAD
--- OUTSIDE RECORDS SUMMARY | 2025-04-05 05:45 | XMS_ITS ---
Author Organization [facility] Address [address] [place] [id number] Care Team Providers Care Diorama Model Maker Name Role Phone Nik Pritchard Primary Care Provider Allergies Allergen (clinical drug ingredient) Drug/Non Drug Allergy documented on EMR Reaction Allergy Type Onset Date Status Penicillin rash Drug Allergy Active Results Component Value Reference Range Notes P-Comprehensive Metabolic Pa iesha (CMP) Reviewed date:04/09/2025 09:01:36 AM Interpretation:Creat 1.12, eGFR 49, Alk Phos 213 Performing Lab: Notes/Report: Test performed by [facility] [address] [place] [address] , [address], [place] [address] William Sanchez MD, Expeditionary Fighting Vehicle Crewman CLIA: [id number] Sodium 142 135-145 mmol/L Potassium 5.0 3.5-5.3 mmol/L Chloride 106 97-108 mmol/L CO2 23 20-32 mmol/L Glucose 86 65-99 mg/dL BUN 13 8-23 mg/dL Creatinine 1.13 0.50-1.00 mg/dL Calcium 10.1 8.6-10.4 mg/dL eGFR by Creatinine 49 >59 mL/min/1.73m2 Protein 6.7 6.0-8.3 g/dL Albumin 4.2 3.5-5.3 g/dL Alkaline Phosphatase 213 35-121 IU/L ALT (SGPT) 23 <5-47 IU/L AST (SGOT) 31 <5-40 IU/L Bilirubin, Total 0.6 <0.2-1.2 mg/dL A/G Ratio 1.7 1.1-2.5 P-T4 Free (thyroxine) Reviewed date:04/09/2025 09:01:36 AM Interpretation:Normal Performing Lab: Notes/Report: Test performed by [email or web address] [address] [place] [address] , [address], [place] [address] William Sanchez MD, Expeditionary Fighting Vehicle Crewman CLIA: [id number] Thyroxine Free (free T4) 1.38 0.86-1.76 ng/dL P-Lipid Panel Reviewed date:04/09/2025 09:01:36 AM Interpretation:Normal Performing Lab: Notes/Report: Test performed by [facility] [address] , [address], [place] [address] William Sanchez MD, Expeditionary Fighting Vehicle Crewman CLIA: [id number] Cholesterol 196 <200 mg/dL Triglycerides 77 <150 mg/dL HDL Cholesterol 80 >39 mg/dL Cholesterol / HDL Ratio 2.45 0.00-4.44 Ratio Non-HDL Cholesterol 116 <130 mg/dL LDL Cholesterol (Calculation) 100 <130 mg/dL LDL Cholesterol Levels* Less than [...] Results: 87 Units: mg/dL % Change: -17% Test Date: 04/05/2025 LDL Results: 100 Units: mg/dL % Change: +14% P-Phosphorus Reviewed date:04/09/2025 09:01:36 AM Interpretation:Normal Performing Lab: Notes/Report: Test performed by [facility] [address] , [place] , [place] [address] William Sanchez MD, Expeditionary Fighting Vehicle Crewman CLIA: [id number] Phosphorus 4.0 2.5-4.5 mg/dL P-TSH Reviewed date:04/09/2025 09:01:36 AM Interpretation:Normal Performing Lab: Notes/Report: Test performed by [email or web address] [address] [place] [address] [address], [place] [address] William Sanchez MD, Expeditionary Fighting Vehicle Crewman CLIA: [id number] TSH 0.59 0.43-5.25 mU/L P-Microalbumin/Creatinine, R andom Urine Sample Reviewed date:04/09/2025 09:01:36 AM Interpretation:Normal Performing Lab: Notes/Report: Test performed by [facility] [address], [place] [address] William Sanchez MD, Expeditionary Fighting Vehicle Crewman CLIA: [id number] Albumin/Creatinine Ratio, Urine 24 0-30 ug/m g Microalbumin, Urine, Random 2.6 Creatinine, Urine 107.6 P-Vitamin D 25-Hydroxy Reviewed date:04/09/2025 09:01:36 AM Interpretation:>120 Performing Lab: Notes/Report: Test performed by [email or web address] [address] [place] [address] , [address], [place] [address] William Sanchez MD, Expeditionary Fighting Vehicle Crewman CLIA: [id number] Vitamin D 25-Hydroxy >120 30.0-100.0 ng/mL Interpretation of Vitamin D 25 OH: < 20 ng/mL - Deficiency 20 - 29 ng/mL - Insufficiency 30 - 100 ng/mL - Sufficiency > 100 ng/mL - Super-therapeutic- toxicity may occur above this level. Clinical correlation required. REASON FOR VISIT 6 month f/u Medications Medication SIG (Take, Route, Frequency, Duration) Notes Start Date End Date Status Donepezil HCl 10 MG 1 tab(s) Orally Once in the morning; Duration: 90 days Active Simvastatin 20 MG 1 tab(s) orally once a day (at bedtime); Duration: 90 days Active Levothyroxine Sodium 75 MCG 1 tab(s) ora lly once a day; Duration: 90 days Active Aspirin 81 MG 1 tablet Orally Once a day; Duration: 30 day(s) Active Vitamin D3 1.25 MG (81017 UT) 1 cap(s) orally once a week; Duration: 90 days Active Losartan Potassium 25 MG 1 tablet Orally Once a day; Duration: 90 days 07/11/2023 Active Farxiga 10 MG 1 tablet Orally Once a day; Duration: 90 days 10/05/2024 Active Problems Problem Type SNOMED Code ICD Code Onset Dates Problem Status W/U Status Risk Notes Problem Dementia (89315345) Dementia without behavioral disturbance (F03.90) Active confirmed Vital Signs Blood pressure systolic 132 mm Hg 04/05/20 25 Blood pressure diastolic 74 mm Hg 025 Heart Rate 50 /min 04/05/2025 Height 61.25 in 04/05/2025 Weight 145.2 lbs 04/05/2025 BMI 27.21 kg/m2 04/05/2025 Encounters Encounter Location Date Provider Diagnosis [facility] [address] [place], [place] [id number] 04/05/2025 Nik Pritchard Acquired hypothyroid ism E03.9 ; Pure hypercholesterolemia E78.00 ; Vitamin D deficiency E55.9 ; Stage 3a chronic kidney disease N18.31 ; MCI (mild cognitive impairment) G31.84 ; Depressive disorder F32.9 and BMI 27.0-27.9,adult Z68.27 Assessments Encounter Date Diagnosis (ICD Code) Assessment Notes Treatment Notes Treatment Clinical Notes Section Notes 04/05/2025 Acquired hypothyroid ism (ICD-10 - E03.9) 04/05/2025 Pure hypercholesterolemia (ICD-10 - E78.00) 04/05/2025 Vitamin D deficiency (ICD-10 - E55.9) 04/05/2025 Stage 3a chronic kid angle disease (ICD-10 - N18.31) 04/05/2025 MCI (mild cognitive impairment) (ICD-10 - G31.84) 04/05/2025 Depressive disorder (ICD-10 - F32.9) 04/05/2025 BMI 27.0-27.9,adult (ICD-10 - Z68.27) Plan Of Treatment Next Appt Details Follow Up: 6 Months, Reason: Provider Name:Nik Gaytan , 10/07/2025 10:00:00 AM, [address] [facility], [address], [place], [id number], Progress Notes * GOLDY MCCARTHYDOB:1945 (79 yo F)Acc No.[id number]:04/05/2025 Progress Notes Patient: Gilles GOLDY ALEXIS Provider: Travis Pritchard M.D. :1945 A ge:79 Y S ex:Female Date:04/05/2025 Address:[address] [place] [address] [id number] Subjective: * Chief Complaints: * 1 . 6 month f/u. * HPI: E ndocrinology: 79 year old female presents with c/o Hypothyroidism P t is here for 6 month follow up. Pt states she is doing well and does not have any concerns. C ardiology: c/o Hyperlipidemia P t is fasting today. * ROS: D ERMATOLOGY: no R sina. n o H heath. G ASTROENTEROLOGY: no N ausea. n o V omiting. n o D iarrhea.? U ROLOGY: no D ifficulty urinating. n [...] ago. * Social History: C URRENT TOBACCO USE: No S moking Status: P atient does NOT smoke, F ormer Smoker:?No, S econd hand smoke exposure: Y es as a young child. * Medications: T aking Aspirin 81 MG Tablet Delayed Release 1 tablet Orally Once a day , Taking Vitamin D3 1.25 MG (84699 UT) Capsule 1 cap(s) orally once a week , Taking Simvastatin 20 MG Tablet 1 tab(s) orally once a day (at bedtime) , Taking Levothyroxine Sodium 75 MCG Tablet 1 tab(s) orally once a day , Taking Donepezil HCl 10 MG Tablet 1 tab(s) Orally Once in the morning , Taking Losartan Potassium 25 MG Tablet 1 tablet Orally Once a day , Taking Farxiga 10 MG Tablet 1 tablet Orally Once a day , Medication List reviewed and reconciled with the patient * Allergies: P enicillin: rash. Objective: * Vitals: W t: 145.2, Temp: 97.8, BP: 132/74, HR: 50, Nurse: REBECCA, Ht: 61.25, BMI:27.21. * Examination: E ndocrinology: General Appearance: N AD. H EENT: u nremarkable.?Heart: R SR. L ungs: c lear to auscultation. N eurologic Exam: I ntact, conversant, no focal deficits. Assessment: * Assessment: 1. A cquired hypothyroidism - E03.9 (Primary) 2 . P ure hypercholesterolemia - E78.00 3 . V itamin D deficiency - E55.9 4 . S tage 3a chronic kidney disease - N18.31 5 . M CI (mild cognitive impairment) - G31.84 6. D epressive disorder - F32.9 7 . B [place] 27.0-27.9,adult - Z68.27 Plan: * Treatment: Value Reference Range T hyroxine Free (free T4) 1.38 0.86-1.76 - ng/d L * Shelby Kirk 04/09/2025 09:0 1:31 AM EDT > See phone encounter ?LAB: P-TSH (Collection Date & Time - 04/05/2025 09:21 AM)?Normal* Value Reference Range T SH 0.59 0.43-5.25 - mU/L * Shelby Krik 04/09/2025 09:0 1:31 AM EDT > See phone encounter 2.?Pure hypercholesterolemia?LAB: P-Comprehensive Metabolic Panel (CMP) (Collection Date & Time - 04/05/2025 09:21 AM)?Creat 1.12, eGFR 49, Alk Phos 213* Value Reference Range A /G Ratio 1.7 1.1-2.5 - * A lbumin 4.2 3.5-5.3 - g/dL * A lkaline Phosphatase 213 H 35-121 - IU/L * A LT (SGPT) 23 <5-47 - IU/L * A ST (SGOT) 31 <5-40 - IU/L * B ilirubin, Total 0.6 <0.2-1.2 - mg/dL * B UN 13 8-23 - mg/dL * C alcium 10.1 8.6-10.4 - mg/dL * C hloride 106 97-108 - mmol/L * C O2 23 20-32 - mmol/L * C reatinine 1.13 H 0.50-1.00 - mg/dL * G lucose 86 65-99 - mg/dL * P otassium 5.0 3.5-5.3 - mmol/L * S odium 142 135-145 - mmol/L * P rotein 6.7 6.0-8.3 - g/dL * e GFR by Creatinine 49 L >59 - mL/min/1.73m2 * Shelby Kirk 04/09/2025 09:0 1:31 AM EDT > See phone encounter ?LAB: P-Lipid Panel (Collection Date & Time - 04/05/2025 09:21 AM)?Normal* Value Reference Range C holesterol / HDL Ratio 2.45 0.00-4.44 - Ratio * C holesterol 196 <200 - mg/dL * H DL Cholesterol 80 >39 - mg/dL * L DL Cholesterol (Calculation) 100 <130 - mg/d L * L DL/HDL Ratio 1.3 <3.3 - Ratio * N on-HDL Cholesterol 116 <130 - mg/dL * T riglycerides 77 <150 - mg/dL * Shelby Kirk 04/09/2025 09:0 1:31 AM EDT > See phone encounter 3.?Vitamin D deficiency?LAB: P-Vitamin D 25-Hydroxy (Collection Date & Time - 04/05/2025 09:21 AM)? >120* Value Reference Range V itamin D 25-Hydroxy >120 H 30.0-100.0 - ng/mL * Shelby Kirk 04/09/2025 09:0 1:31 AM EDT > See phone encounter 4.?Stage 3a chronic kidney disease?LAB: P-Comprehensive Metabolic Panel (CMP) (Collection Date & Time - 04/05/2025 09:21 AM)?Creat 1.12, eGFR 49, Alk Phos 213* Value Reference Range A /G Ratio 1.7 1.1-2.5 - * A lbumin 4.2 3.5-5.3 - g/dL * A lkaline Phosphatase 213 H 35-121 - IU/L * A LT (SGPT) 23 <5-47 - IU/L * A ST (SGOT) 31 <5-40 - IU/L * B ilirubin, Total 0.6 <0.2-1.2 - mg/dL * B UN 13 8-23 - mg/dL * C alcium 10.1 8.6-10.4 - mg/dL * C hloride 106 97-108 - mmol/L * C O2 23 20-32 - mmol/L * C reatinine 1.13 H 0.50-1.00 - mg/dL * G lucose 86 65-99 - mg/dL * P otassium 5.0 3.5-5.3 - mmol/L * S odium 142 135-145 - mmol/L * P rotein 6.7 6.0-8.3 - g/dL * e GFR by Creatinine 49 L >59 - mL/min/1.73m2 * Shelby Kirk 04/09/2025 09:0 1:31 AM EDT > See phone encounter ?LAB: P-Phosphorus (Collection Date & Time - 04/05/2025 09:21 AM)?Normal* Value Reference Range P hosphorus 4.0 2.5-4.5 - mg/dL * Shelby Kirk 04/09/2025 09:0 1:31 AM EDT > See phone encounter ?LAB: P-Microalbumin/Creatinine, Random Urine Sample (Collection Date & Time - 04/05/2025 09:21 AM)?Normal* Value Reference Range A lbumin/Creatinine Ratio, Urine 24 0-30 - ug /mg * C reatinine, Urine 107.6 - mg/dL * M icroalbumin, Urine, Random 2.6 - mg/dL * Shelby Kirk 04/09/2025 09:0 1:31 AM EDT > See phone encounter * Procedure Codes: G 2211 Complex e/m visit add on, 1036F TOBACCO NON-USER, G8420 BMI<30 AND >=22 CALC & DOCU, G8783 BP SCR PRFRM RCMDD DEFIND SCR INTVL, G8752 MOST RECENT SYSTOLIC BP < 140MM HG, G8754 MOST RECENT DIASTOLIC BP < 90MM HG * Follow Up: 6 Months * Images: Drawin04/05/25 [facility] Billing Information: * Visit Code: 96703 Office Visit, Est Pt., Level 4. * Procedure Codes: G2211 Complex e/m visit add on. 1036F TOBACCO NON-USER. G8420 BMI<30 AND >=22 CALC & DOCU. G8783 BP SCR PRFRM RCMDD DEFIND SCR INTVL. G8752 MOST RECENT SYSTOLIC BP < 140MM HG. G8754 MOST RECENT DIASTOLIC BP < 90MM HG. * Electronic signature of Dariana Pritchard MD on 05/01/2025 at 09:05 AM EDT Sign off status: Pending * Provider: Travis Pritchard M.D. Date: 0 04/05/2025 Generated for Dante alba/Pascual/Brittanysmitting on: 0 05/01/2025 09:05 AM EDT History and Physical Notes * HPI (History of Present Illness) Category Sub-Category Detail Notes Category Not es Endocrinology Hypothyroidism Pt is here for 6 month follow up. Pt states she is doing well and does not have any concerns Cardiology Hyperlipidemia Pt is fasting today Examination Category Sub-Category Detail Notes Category Not es Endocrinology HEENT: unremarkable Heart: RSR Lungs: clear to auscultatio n General Appearance: NAD Neurologic Exam: Intact, conversant, no focal deficits
--- OUTSIDE RECORDS SUMMARY | 2025-04-09 05:14 | XMS_ITS ---
Author Organization [facility] Address [facility] [address] [place] [id number] Care Team Providers Care Grain Combiner Name Role Phone Nik Pritchard Primary Care Provider REASON FOR VISIT due dexa Encounters Encounter Location Date Provider [facility] [address] [place] [id number] 04/09/2025 Nik Pritchard Encounter for screen ing for osteoporosis Z13.820 and Post-menopausal Z78.0 Assessments Encounter Date Diagnosis (ICD Code) Assessment Notes Treatment Notes Treatment Clinical Notes Section Notes 04/09/2025 Encounter for screening for osteoporosis (ICD-10 - Z13.820) 04/09/2025 Post-menopausal (ICD-10 - Z78.0) Plan Of Treatment Pending Test Test Name Order Date Bone density 04/09/2025 Next Appt Details Provider Name:Nik Gaytan ry, 10/07/2025 10:00:00 AM, [address] [facility] [address] [facility], [address], [place], [id number], Progress Notes * GOLDY MCCARTHYDOB:1945 (79 yo F)Acc No.[id number]:04/09/2025 Patient: Gilles GOLDY ALEXIS :1945 A ge:79 Y S ex:Female Address:[address] [place] [address] , [place], [id number] Subjective: * Chief Complaints: * D ue dexa * Medical History: * Surgical History: * Hospitalization/Major Diagno stic Procedure: * Medications: Objective: * Vitals: * Physical Examination: Assessment: * Assessment: 1. E ncounter for screening for osteoporosis - Z13.820 (Primary) 2 . P ost-menopausal - Z78.0 Plan: * Treatment: 2.?Post-menopausal?Imaging: Bone density* Bhakti Bates 04/10/2025 09:46 :55 AM EDT >sent to [facility] for referral to [facility] * Procedure Codes: * true * Date: Generated for Dante alba/Pascual/eTradhasmitting on: 0 05/01/2025 09:05 AM EDT
--- NOTE | 2025-05-01 08:56 | XR_ITS ---
FINAL REPORT TECHNIQUE: Bone densitometry calculations of the lumbar spine and bilateral hips were obtained. CLINICAL HISTORY: SCREENING COMPARISON: None FINDINGS: Using L1-4, the bone mineral density of the spine is 1.016 g/cm2, corresponding to T-score of -0.3 and a Z score of 2.5. This is within the range of normal. Using the left hip, the bone mineral density of the femoral neck is 0.650 g/cm2, corresponding to a T-score of -1.8 and a Z-score of 0.6. This is within the range of osteopenia. Using the right hip, the bone mineral density of the femoral neck is 0.667 g/cm?, corresponding to a T-score of -1.6 and a Z-score of 0.7. This is within the range of osteopenia. NOTE: T-score: Standard deviation compared with peak bone mass of young adult mean. *Following the recommendations of the International Society of Bone densitometry, classification of hip BMD is based on the lower of two T-scores; total hip or femoral neck. IMPRESSION: 1. Bone mineral density of the lumbar spine within the range of normal. 2. Bone mineral density of the bilateral femoral necks within the range of osteopenia. Reviewed, Interpreted and Dictated by Gina Salinas MD Transcribed by Subha Sheth Authenticated and . [facility]
--- OUTSIDE RECORDS SUMMARY | 2025-05-01 09:06 | XMS_ITS | Patient Health Record ---
Author Organization [facility] Address [address] [facility] [address] [place] [id number] Care Team Providers Care Frame Wirer Name Role Phone Nik Pritchard Primary Care Provider Allergies Allergen (clinical drug ingredient) Drug/Non Drug Allergy documented on EMR Reaction Allergy Type Onset Date Status Penicillin rash Drug Allergy Active Results Component Value Reference Range Notes P-Comprehensive Metabolic Pa iesha (CMP) Reviewed date:10/08/2024 11:41:29 AM Interpretation:Cr 1.18, gfr 46, alk phos 212 Performing Lab: Notes/Report: Test performed by [facility] [address] [place] [address] , [address], [place] [address] William Sanchez MD, Lumber Cutter CLIA: [id number] Sodium 142 135-145 mmol/L Potassium 4.6 3.5-5.3 [...] Normal Performing Lab: Notes/Report: Test performed by [facility] [address] , [place] [address] William Sanchez MD, Lumber Cutter CLIA: [id number] Cholesterol 192 <200 mg/dL Triglycerides 96 <150 [...] Normal Performing Lab: Notes/Report: Test performed by [facility] , [address], [place] [address] William Sanchez MD, Lumber Cutter CLIA: [id number] Phosphorus 3.4 2.5-4.5 mg/dL P-Vitamin D 25-Hydroxy Reviewed date:04/09/2025 09:01:36 AM Interpretation:>120 Performing Lab: Notes/Report: Test performed by [facility] [address] , [place] [address] William Sanchez MD, Lumber Cutter CLIA: [id number] Vitamin D 25-Hydroxy >120 30.0-100.0 ng/mL Interpretation of Vitamin D 25 OH: < 20 ng/mL - Deficiency 20 - 29 ng/mL - Insufficiency 30 - 100 ng/mL - Sufficiency > 100 ng/mL - Super-therapeutic- toxicity may occur above this level. Clinical correlation required. P-Microalbumin/Creatinine, R andom Urine Sample Reviewed date:04/09/2025 09:01:36 AM Interpretation:Normal Performing Lab: Notes/Report: Test performed by [facility] , [address], [place] [address] William Sanchez MD, Lumber Cutter CLIA: [id number] Albumin/Creatinine Ratio, Urine 24 0-30 ug/m g Microalbumin, Urine, Random 2.6 Creatinine, Urine 107.6 P-TSH Reviewed date:04/09/2025 09:01:36 AM Interpretation:Normal Performing Lab: Notes/Report: Test performed by [facility] [address] , [address], [place] [address] William Sanchez MD, Lumber Cutter CLIA: [id number] TSH 0.59 0.43-5.25 mU/L P-Phosphorus Reviewed date:04/09/2025 09:01:36 AM Interpretation:Normal Performing Lab: Notes/Report: Test performed by [facility] [address] [place] [address] [address], [place] [address] William Sanchez MD, Lumber Cutter CLIA: [id number] Phosphorus 4.0 2.5-4.5 mg/dL P-Lipid Panel Reviewed date:04/09/2025 09:01:36 AM Interpretation:Normal Performing Lab: Notes/Report: Test performed by [facility] [address] [place] [address] [address], [place] [address] William Sanchez MD, Lumber Cutter CLIA: [id number] Cholesterol 196 <200 mg/dL Triglycerides 77 <150 [...] Results: 100 Units: mg/dL % Change: +14% P-T4 Free (thyroxine) Reviewed date:04/09/2025 09:01:36 AM Interpretation:Normal Performing Lab: Notes/Report: Test performed by [facility] [address] [place], [place] [address] , [address], [place] [address] William Sanchez MD, Lumber Cutter CLIA: [id number] Thyroxine Free (free T4) 1.38 0.86-1.76 ng/dL P-Comprehensive Metabolic Pa iesha (CMP) Reviewed date:04/09/2025 09:01:36 AM Interpretation:Creat 1.12, eGFR 49, Alk Phos 213 Performing Lab: Notes/Report: Test performed by [facility] [address] [place], [place] [address] [address] , [address], [place] [address] William Sanchez MD, Lumber Cutter CLIA: [id number] Sodium 142 135-145 mmol/L Potassium 5.0 3.5-5.3 [...] 0.6 <0.2-1.2 mg/dL A/G Ratio 1.7 1.1-2.5 Reason For Referral No Information Medications Medication SIG (Take, Route, Frequency, Duration) Notes Start Date End Date Status Donepezil HCl 10 MG 1 tab(s) Orally Once in the morning; Duration: 90 days Active Levothyroxine Sodium 75 MCG 1 tab(s) ora lly once a day; Duration: 90 days Active Losartan Potassium 25 MG 1 tablet Orally Once a day; Duration: 90 days 07/11/2023 Active Vitamin D3 50 MCG (2000 UT) 1 capsule Or ally twice a day; Duration: 30 days 04/11/2025 Active Farxiga 10 MG 1 tablet Orally Once a day; Duration: 90 days 10/05/2024 Active Aspirin 81 MG 1 tablet Orally Once a day; Duration: 30 day(s) Active Simvastatin 20 MG 1 tablet at bedtime Orally Once a day; Duration: 90 days Active Immunizations Vaccine Route Administration Date Status Comme nts COVID 19 Moderna Unknown 09/15/2020 Administered Fluzone High Dose (65yr and older) Unknown 06/15/2017 Administered Fluzone High Dose (65yr and older) IM Intramuscular 09/26/2018 Administered Fluzone High Dose (65yr and older) IM Intramuscular 05/18/2019 Administered Fluzone High Dose (65yr and older) IM Intramuscular 05/22/2020 Administered Fluzone High Dose (65yr and older) IM Intramuscular 05/20/2022 Administered Fluzone High Dose (65yr and older) IM Intramuscular 05/02/2023 Administered Fluzone High Dose (65yr and older) IM Intramuscular 04/06/2024 Administered PNEUMOVAX 23 VACCINE IM Intramuscular 09/26/2018 Administe red Prevnar (PCV20) IM Intramuscular 05/02/2023 Administered Problems Problem Type SNOMED Code ICD Code Onset Dates Problem Status W/U Status Risk Notes Problem Vitamin D deficiency (86559742) Vitamin D deficiency (E55.9) Active confirmed Problem Memory loss (87554761) Memory loss (R41.3) Active confirmed Problem Depressive disorder (62921110) Depressive disorder (F32.9) Active confirmed Problem Acquired hypothyroidism (484769004) Acquired hypothyroidism (E03.9) Active confirmed Problem Dementia (86728279) Dementia wit hout behavioral disturbance (F03.90) Active confirmed Problem Pure hypercholesterolemia (780381495) Pure hypercholesterolemia (E78.00) Active confirmed Problem Urge incontinence of urine (47789996) Urge incontinence of urine (N39.41) Active confirmed Problem Mild cognitive disorder (878795867) MCI (mild cognitive impairment) (G31.84) Active confirmed Problem Chronic kidney disease stage 3A (418742389) Stage 3a chronic kidney disease (N18.31) Active confirmed Problem Central retinal artery occlusion (74029175) Central retinal artery occlusion of right eye (H34.11) Active confirmed Vital Signs Heart Rate 50 /min 04/05/2025 Blood pressure diastolic 74 mm Hg 04/05/2025 Height 61.25 in 04/05/2025 Blood pressure systolic 132 mm Hg 04/05/2025 Weight 145.2 lbs 04/05/2025 BMI 27.21 kg/m2 04/05/2025 Encounters Encounter Location Date Provider Diagnosis [facility] [address] [place], [place] [id number] 10/05/2024 Nik [place] Pure hypercholestero lemia E78.00 and Stage 3a chronic kidney disease N18.31 [facility] [address] [facility] [address] [place], [place] [id number] 04/05/2025 Nik [place] Acquired hypothyroid ism E03.9 ; Pure hypercholesterolemia E78.00 ; Vitamin D deficiency E55.9 ; Stage 3a chronic kidney disease N18.31 ; MCI (mild cognitive impairment) G31.84 ; Depressive disorder F32.9 and BMI 27.0-27.9,adult Z68.27 [facility] [address] [place], [place] [id number] 05/08/2024 Nik [place] [facility] [address] [place], [place] [id number] 06/19/2024 Nik [place] [facility] [address] [place], [place] [id number] 07/20/2024 Nik [place] Stage 3a chronic kid angle disease N18.31 and Vitamin D deficiency E55.9 [facility] [address] [place], [place] [id number] 08/06/2024 Nik [place] [facility] [address] [place] [id number] 10/08/2024 Nik [place] [facility] [address] [place], [place] [id number] 11/05/2024 Nik [place] [facility] [address] [place] [id number] 12/13/2024 Nik [place] [facility] [address] [place] [id number] 01/21/2025 Nik [place] Stage 3a chronic kid angle disease N18.31 [facility] [address] [place] [id number] 03/27/2025 Nik [place] Stage 3a chronic kid angle disease N18.31 [facility] [address] [place] [id number] 04/09/2025 Nik [place] [facility] [address] [place] [id number] 04/09/2025 Nik [place] Encounter for screen ing for osteoporosis Z13.820 and Post-menopausal Z78.0 [facility] [address] [place], [place] [id number] 04/24/2025 Nik [place] Pure hypercholestero lemia E78.00 Assessments Encounter Date Diagnosis (ICD Code) Assessment Notes Treatment Notes Treatment Clinical Notes Section Notes 07/20/2024 Stage 3a chronic kid angle disease (ICD-10 - N18.31) 10/05/2024 Pure hypercholesterolemia (ICD-10 - E78.00) 10/05/2024 Stage 3a chronic kid angle disease (ICD-10 - N18.31) 01/21/2025 Stage 3a chronic kid angle disease (ICD-10 - N18.31) 03/27/2025 Stage 3a chronic kid angle disease (ICD-10 - N18.31) 04/05/2025 Acquired hypothyroid ism (ICD-10 - E03.9) 04/05/2025 Pure hypercholesterolemia (ICD-10 - E78.00) 04/09/2025 Encounter for screen ing for osteoporosis (ICD-10 - Z13.820) 04/09/2025 Post-menopausal (ICD -10 - Z78.0) 04/24/2025 Pure hypercholesterolemia (ICD-10 - E78.00) 04/05/2025 Vitamin D deficiency (ICD-10 - E55.9) 07/20/2024 Vitamin D deficiency (ICD-10 - E55.9) 04/05/2025 Stage 3a chronic kid angle disease (ICD-10 - N18.31) 04/05/2025 MCI (mild cognitive impairment) (ICD-10 - G31.84) 04/05/2025 Depressive disorder (ICD-10 - F32.9) 04/05/2025 BMI 27.0-27.9,adult (ICD-10 - Z68.27) Plan Of Treatment Pending Test Test Name Order Date Bone density 04/09/2025 Next Appt Details Provider Name:Nik Gaytan ry, 10/07/2025 10:00:00 AM, [address], [address], [place], [place], [id number], Insurance Providers Payer Name Payer Address Payer Phone Subscriber Number Group Number Insured Name Patient Relationship to Insured Coverage Start Date Coverage End Date [employer]ARE [address] [address] [place], [place] [id number] GOLDY MCCARTHY Self - patient is the insured Medical (General) History Medical History History ICD Code Hyperlipidemia Hypothyroidism Vitamin D Deficiency Mild Cognitive Impairment, Dx 2018, foll owed at [facility] Retinal artery occlusion 2022 Surgical History Surgery Date(Month/Year) Cataract 2013 Lip Lesion Removal 2016 Hospitalization History Reason Date(Month/Year)
== END 2025-05-01 23:59 | disposition home or self-care (01) ==
LOC: RAD 08:53
PROVIDERS: PCP Family Medicine; Visit Provider Family Medicine
DX: M85.852 Other specified disorders of bone density and structure, left thigh (principal); M85.851 Other specified disorders of bone density and structure, right thigh; Z13.820 Encounter for screening for osteoporosis; Z78.0 Asymptomatic menopausal state
CPT/HCPCS: 77080